=== PATIENT | female | born 1995 | race Caucasian/White ===

== ENCOUNTER 2018-08-11 15:17 | Emergency (ER) | payer OTHER ==
[2018-08-11 15:29] VITALS: BMI 27.8
[2018-08-11 17:05] LABS: URINE APPEARANCE CLEAR; URINE BILIRUBIN NEGATIVE (NEGATIVE); URINE COLOR YELLOW; URINE GLUCOSE (UA) NEGATIVE (NEGATIVE); URINE KETONE NEGATIVE (NEGATIVE); URINE LEUK ESTERASE NEGATIVE (NEGATIVE); URINE NITRITE NEGATIVE (NEGATIVE); URINE PROTEIN NEGATIVE (NEGATIVE); URINE UROBILINOGEN 0.2 mg/dL (0.2-1.0)
[2018-08-11 17:08] LABS: HCG,QUALITATIVE URINE Negative
[2018-08-11 17:10] LABS: BASO % 0.8 % (0-2.0); EOS % 2.6 % (0-4.5); HEMATOCRIT 43.2 % (32.4-45.2); HEMOGLOBIN 14.5 GM/dL (10.7-15.3); LYMPH % 37.8 % (8-40); MCH 30.4 pg (25.7-33.7); MCHC 33.5 g/dl (32.0-36.0); MEAN CELL VOLUME 90.6 fl (80-96); MEAN PLT VOLUME 9.1 fl (7.5-11.1); MONO % 6.6 % (3.8-10.2); NEUT % 52.2 % (42.8-82.8); PLATELET COUNT 280 K/MM3 (134-434); RBC 4.76 M/mm3 (3.60-5.2); RDW 12.1 % (11.6-15.6); WHITE BLOOD COUNT 9.6 K/mm3 (4.0-10.0)
[2018-08-11 17:24] LABS: ALBUMIN 4.1 g/dl (3.4-5.0); BILIRUBIN,TOTAL 0.8 mg/dL (0.2-1); BLOOD UREA NITROGEN 11.8 mg/dL (7-18); CALCIUM 9.1 mg/dL (8.5-10.1); CREATININE 0.9 mg/dL (0.55-1.3); POTASSIUM 4.1 mmol/L (3.5-5.1); TOT PROT 7.3 g/dl (6.4-8.2)
--- NOTE | 2018-08-11 17:31 | PDOC ---
History of Present Illness - General Chief Complaint: Pain, Acute Stated Complaint: ABD PAIN/WEAKNESS Time Seen by Provider: 08/11/18 16:23 History Source: Patient Exam Limitations: No Limitations Past History - Past Medical History Allergies/Adverse Reactions: Allergies Allergy/AdvReac Type Severity Reaction Status Date / Time No Known Allergies Allergy Verified 04/08/16 17:42 Home Medications: Ambulatory Orders Phentermine HCl 15 mg PO 08/11/18 COPD: No Thyroid Disease: No - Surgical History Appendectomy: Yes - Immunization History Immunization Up to Date: Yes - Suicide/Smoking/Psychosocial Hx Smoking History: Never smoked Have you smoked in the past 12 months: No Number of Cigarettes Smoked Daily: 0 Cigars Per Day: 0 Information on smoking cessation initiated: No Hx Alcohol Use: No Drug/Substance Use Hx: No Substance Use Type: None *Physical Exam - Vital Signs Last Vital Signs Temp Pulse Resp BP Pulse Ox 97.8 F 135 H 18 121/92 99 08/11/18 15:24 08/11/18 15:24 08/11/18 15:24 08/11/18 15:24 08/11/18 15:24 - Physical Exam General Appearance: No: Apparent Distress HEENT: positive: Other (no head trauma) Neck: positive: Supple Respiratory/Chest: positive: Lungs Clear, Normal Breath Sounds. negative: Respiratory Distress Cardiovascular: positive: Regular Rhythm, S1, S2, Tachycardia. negative: Murmur Gastrointestinal/Abdominal: positive: Normal Bowel Sounds, Soft. negative: Tender, Distended, Guarding, Rebound Rectal Exam: negative: hemorrhoids Extremity: negative: Pedal Edema, Swelling, Calf Tenderness Integumentary: positive: Normal Color Neurologic: positive: highway maintainer II-XII NML intact, Fully Oriented, Alert, Normal Mood/ Affect, Motor Strength 5/5 ED Treatment Course - LABORATORY CBC & Chemistry Diagram: 08/11/18 16:50 08/11/18 16:50 - ADDITIONAL ORDERS Additional order review: Laboratory Results 08/11/18 16:50 Urine Color Yellow Urine Appearance Clear Urine pH 8.0 D Ur Specific [place] 1.011 Urine Protein Negative Urine Glucose (UA) Negative Urine Ketones Negative Urine Blood Negative Urine Nitrite Negative Urine Bilirubin Negative Urine Urobilinogen 0.2 Ur Leukocyte Esterase Negative Urine HCG, Qual Negative Medical Decision Making - Medical Decision Making 23 y/o F with no sig PMH, 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 States she was washing dishes and bent down to get something; next thing she knew, she stood up and then passed out. Denies having any symptoms prior to passing out. However, currently feels a bit lightheaded. Patient states she did have food to eat today. Mentions having minimal lower abdominal discomfort this morning, but didn't think much of it. Also has been constipated x 2 days. Mentions noting BRBPR x 2 episodes; one yesterday and one today, but states small amount of blood and was only noted with wiping. Denies fever, cough, sob, cp, n/v/d, urinary complaints, headache, neck pain, numbness/tingling, weakness of extremities, bowel/bladder incontinence. Patient states 2 years ago, she had episodes of passing out twice but never had it evaluated and assumed it was from heat at the time. Denies FH of heart disease or sudden cardiac . Denies smoking, drug use, alcohol. Denies recent travel (only recent trip was [address] to [place] last week). Denies use of OCPs EKG: Sinus tach at 130 bpm Multiple possible causes: consider arrhythmia, ruptured ectopic, PE, vasovagal ( though no provoking factors noted), orthostatic (unlikely given no evidence of hypovolemia, and though, she had 2 episodes of mild BRBPR with wiping (likely related to constipation), did not have massive bleeding), stroke (less likely), hypoglycemia, seizure Orthostatic vitals done: Lying down BP: 117/85, HR 134 Sittin/93, HR 133 Standin/95, HR 144 Plan: Tele, Labs, IVF 08/11/18 17:15 Labs unremarkable other than glucose of 61 Patient was given food to eat D-dimer negative Patient HR now 115-120 Wanted to admit patient as obs for further evaluation, but patient refused to stay, citing she does not want to stay in hospital Risks including worsening of condition, explained to patient. Patient is A &Ox3 and has capacity to make decisions 08/11/18 18:37 *DC/Admit/Observation/Transfer Diagnosis at time of Disposition: Syncope Qualifiers: Syncope type: unspecified Qualified Code(s): R55 - Syncope and collapse - Discharge Dispostion Disposition: AGAINST MEDICAL ADVICE Condition at time of disposition: Stable - Referrals Referrals: Thien Dixon MD [Primary Care Provider] - 2 Days - Patient Instructions Printed Discharge Instructions: DI for Syncope in Adults (Fainting) Additional Instructions: Thank you for choosing [facility]. It was a pleasure taking care of you. You were seen here after passing out You were recommended to stay for further evaluation and cardiac monitoring Risks for not getting evaluated include worsening of condition, Please be sure to be follow-up with your doctor in 2 days Return to the Emergency Department if your symptoms worsen or persist or have other concerning symptoms. - Post Discharge Activity
[2018-08-11] MEDS ORDERED: SODIUM CHLORIDE 1,000 ML IV STA (17:34)
[2018-08-11] MEDS ORDERED: SODIUM CHLORIDE 0.9% 1000 ML INFUS.BAG IV ONE (17:45)
[2018-08-11 18:13] VITALS: BP 124/95; PULSE 122; TEMP 98.2
--- NOTE | 2018-08-12 17:03 | EKG ---
Test Reason : Blood Pressure : / mmHG Vent. Rate : 130 BPM Atrial Rate : 130 BPM P-R Int : 126 ms QRS Dur : 080 ms QT Int : 302 ms P-R-T Axes : 059 063 039 degrees QTc Int : 444 ms SINUS TACHYCARDIA POSSIBLE LEFT ATRIAL ENLARGEMENT BORDERLINE ECG WHEN COMPARED WITH ECG OF 05-OCT-2015 22:47, NO SIGNIFICANT CHANGE WAS FOUND Confirmed by MD JAYE, DEMARCO ([id number]) on 08/12/2018 5:03:19 PM Referred By: Confirmed By:DEMARCO CEE MD
== END 2018-08-11 18:50 | disposition left against medical advice (07) ==
LOC: JER 15:17
PROC: 3E0337Z Introduction of Electrolytic and Water Balance Substance into Peripheral Vein, Percutaneous Approach (ICD-10-PCS; principal; 2018-08-11)
DX: R55 Syncope and collapse (principal)
CPT/HCPCS: 36415; 80053; 81003; 84443; 84703; 85025; 85379; 93005; 93010; 96360; 99282-25; J7030

== ENCOUNTER 2022-09-03 07:44 | Emergency (ER) | payer OTHER ==
[2022-09-03 08:01] VITALS: BP 131/85; PULSE 103; RESP 18; TEMP 98; BMI 35.6
[2022-09-03] MEDS ORDERED: predniSONE 20 MG TABLET (UD) PO ONE (08:12)
[2022-09-03] MEDS ORDERED: predniSONE 20 MG TABLET (UD) ONE (08:16)
[2022-09-03] MEDS ORDERED: KETOROLAC TROMETHAMINE 30 MG/1 ML VIAL IM ONE (08:31)
[2022-09-03] MEDS ORDERED: KETOROLAC TROMETHAMINE 30 MG/1 ML VIAL ONE (08:55)
== END 2022-09-03 09:58 | disposition home or self-care (01) ==
LOC: JER 07:44
PROC: 3E0233Z Introduction of Anti-inflammatory into Muscle, Percutaneous Approach (ICD-10-PCS; principal; 2022-09-03)
DX: J35.1 Hypertrophy of tonsils (principal); R07.0 Pain in throat; R49.0 Dysphonia; J04.0 Acute laryngitis
CPT/HCPCS: 84703; 99284-25